=== PATIENT | female | born 1960 | race Caucasian/White ===

== ENCOUNTER 2017-01-20 01:21 | Emergency (ER) | payer BC ==
[~2017-01-20] VITALS: Ht 165.1 cm; Wt 68.2 kg
[2017-01-20 01:25] VITALS: BP 143/77; TEMP 97.4
[2017-01-20] MEDS ORDERED: MULTI VITAMINS1 TAB PO (01:29)
[2017-01-20 02:15] LABS: BASO # 0.1 (0.0-0.2); BASO % 1.1 % (0.0-2.0); EOS # 0.2 (0.0-0.7); EOS % 3.2 % (0-4.0); GRAN % 53.3 % (42.2-75.2); HEMATOCRIT 40.6 % (37.0-47.0); HEMOGLOBIN 13.5 g/dl (12.5-16.0); LYMPH # 2.5 (1.2-3.4); LYMPH % 33.8 % (20.0-51.0); MEAN CELL VOLUME 89 fl (80.0-100.0); MEAN CORPUSCULAR HEMOGLOBIN 30 pg (27.0-31.0); MEAN CORPUSCULAR HGB CONC 33 g/dl (33.0-37.0); MEAN PLATELET VOLUME 10.6 fl (7.4-10.4); MONO # 0.6 (0.1-0.6); MONO % 8.3 % (1.7-9.3); PLATELET COUNT 216 K/mm3 (130-400); RED BLOOD COUNT 4.56 M/mm3 (4.10-5.30); WHITE BLOOD COUNT 7.5 K/mm3 (4.8-10.8)
[2017-01-20 02:24] LABS: ADJUSTED CALCIUM 9.2 mg/dL (8.4-10.2); ALBUMIN 4.2 gm/dL (3.5-5.0); BILIRUBIN,TOTAL 0.5 mg/dL (0.0-1.0); CALCIUM 9.4 mg/dL (8.4-10.2); CREATININE, serum 0.82 mg/dL (0.52-1.25); POTASSIUM 3.7 mmol/L (3.4-5.0)
[2017-01-20 02:48] LABS: PH 6 (5-8); SQUAMOUS EPITHELIAL 0-2 /hpf; URINE APPEARANCE Clear; URINE BACTERIA Rare /hpf; URINE BILIRUBIN Negative (NEGATIVE); URINE BLOOD 3+ (NEGATIVE); URINE COLOR Yellow; URINE GLUCOSE Negative (NEGATIVE); URINE KETONE Negative (NEGATIVE); URINE RBC >50 /hpf; URINE UROBILINOGEN Negative (NEGATIVE)
[2017-01-20 03:18] VITALS: PULSE 70
== END 2017-01-20 03:19 | disposition home or self-care (01) ==
LOC: COL.ER 01:21
PROVIDERS: Emergency Medicine
DX: R10.31 Right lower quadrant pain (principal); Z87.442 Personal history of urinary calculi; R31.9 Hematuria, unspecified
CPT/HCPCS: J1885

== ENCOUNTER → 2017-11-23 | Outpatient (CLI) | payer BC ==
[~2017-11-23] MED LIST: MULTI VITAMINS1 TAB PO
== END ==
LOC: MC.RAD 14:48
DX: Z12.31 Encounter for screening mammogram for malignant neoplasm of breast (principal)

== ENCOUNTER → 2019-10-28 | Outpatient (CLI) | payer BC | LOC: MC.RAD 15:41 | DX: Z12.31 Encounter for screening mammogram for malignant neoplasm of breast (principal) ==

== ENCOUNTER → 2020-10-29 | Outpatient (CLI) | payer BC | LOC: MC.RAD 14:53 | DX: Z12.31 Encounter for screening mammogram for malignant neoplasm of breast (principal); G93.9 Disorder of brain, unspecified; G93.5 Compression of brain; G93.6 Cerebral edema ==

== ENCOUNTER 2020-11-17 09:30 | Outpatient (RCR) | payer BC | END 2020-11-29 | disposition home or self-care (01) | LOC: WSC | DX: H53.469 Homonymous bilateral field defects, unspecified side (principal); G93.89 Other specified disorders of brain; G93.6 Cerebral edema; M62.81 Muscle weakness (generalized) ==

== ENCOUNTER → 2020-12-23 | Outpatient (CLI) | payer OTHER | LOC: COL.RAD 14:13 | DX: R91.1 Solitary pulmonary nodule (principal) | CPT/HCPCS: Q9967 ==

== ENCOUNTER → 2021-04-01 | Outpatient (CLI) | payer OTHER ==
[~2021-04-01] MED LIST changes: +B COMPLEX #11 TA1 PO; +BENADRYL25 M2 PO; +DUO-KAPS1 CAP PO; +FLORAJEN A20 Billion PO; +GOOD SENSE SLEE25 M1 PO; +KEPPRA 500MG500 MG PO; -MULTI VITAMINS1 TAB PO; +POLYSPORIN OINT30 GM TP; +ROCEPHIN 2GM VIAL21 IJ; +ROXICODONE 55 MG/TAB PO; +TYLENOL 325MG325 MG PO; +VANCOCIN H125 MG/CAP PO; +ZANAFLEX CAPSULE2 MG PO
== END ==
LOC: COL.RAD 09:04
DX: D32.0 Benign neoplasm of cerebral meninges (principal); Z98.890 Other specified postprocedural states
CPT/HCPCS: A9585

== ENCOUNTER 2021-05-18 09:30 | Outpatient (RCR) | payer OTHER ==
--- NOTE | 2021-04-11 10:00 | NUR ---
Patient here for cares. PICC placed on 04/09/21. Chlorahexidine dressing intact. no signs or symptoms of IV complications noted. no concerns voiced. She will be on 6 weeks of IV antibiotics.
[2021-04-11 10:27] VITALS: BP 121/71; PULSE 68; TEMP 97.7
[2021-04-11 10:32] LABS: MEAN CELL VOLUME 87 fl (80.0-100.0); MEAN CORPUSCULAR HGB CONC 33 g/dl (33.0-37.0); MEAN PLATELET VOLUME 10.4 fl (7.4-10.4); PLATELET COUNT 241 K/mm3 (130-400); RED BLOOD COUNT 3.28 M/mm3 (4.10-5.30)
[2021-04-11 10:36] LABS: HEMATOCRIT 28.4 % (37.0-47.0); HEMOGLOBIN 9.4 g/dl (12.5-16.0); MEAN CORPUSCULAR HEMOGLOBIN 29 pg (27.0-31.0)
[2021-04-11 10:43] LABS: ALBUMIN 3.9 gm/dL (3.5-5.0); BILIRUBIN,TOTAL 0.2 mg/dL (0.0-1.0); C-REACTIVE PROTEIN 6.7 mg/dL (0.0-0.9); CALCIUM 9.2 mg/dL (8.4-10.2); CREATININE, serum 0.64 (0.52-1.25); POTASSIUM 4.1 mmol/L (3.4-5.0); TOTAL PROTEIN 6.7 gm/dL (6.4-8.2)
[2021-04-12 10:04] VITALS: BP 127/80; PULSE 91; TEMP 97.9
[2021-04-13 10:45] VITALS: BP 123/64; PULSE 78; TEMP 98.1
[2021-04-14 10:45] VITALS: BP 112/69; PULSE 77; TEMP 98.3
[2021-04-15 10:20] VITALS: BP 129/63; PULSE 72; TEMP 98.2
[2021-04-15 12:20] LABS: CLOSTRIDIUM DIFF A/B POS; CLOSTRIDIUM DIFF A/B INTERP Toxigenic C.diff POS
[2021-04-16 09:03] VITALS: BP 119/59; PULSE 76; TEMP 98.3
[2021-04-17 08:51] VITALS: BP 108/64; PULSE 86; TEMP 98.5
[2021-04-18 10:12] VITALS: BP 114/63; PULSE 70; TEMP 98.1
[2021-04-18 10:25] LABS: ALBUMIN 3.5 gm/dL (3.5-5.0); BILIRUBIN,TOTAL 0.2 mg/dL (0.0-1.0); CALCIUM 9.2 mg/dL (8.4-10.2); CREATININE, serum 0.6 (0.52-1.25); POTASSIUM 3.7 mmol/L (3.4-5.0); TOTAL PROTEIN 6.5 gm/dL (6.4-8.2)
[2021-04-18 10:27] LABS: MEAN CELL VOLUME 85 fl (80.0-100.0); MEAN CORPUSCULAR HGB CONC 33 g/dl (33.0-37.0); MEAN PLATELET VOLUME 9.9 fl (7.4-10.4); PLATELET COUNT 353 K/mm3 (130-400); RED BLOOD COUNT 3.23 M/mm3 (4.10-5.30); REDCELL DISTRIBUTION WIDTH-CV 13.7 % (11.5-14.5)
[2021-04-18 10:35] LABS: C-REACTIVE PROTEIN 22.1 mg/dL (0.0-0.9)
[2021-04-18 10:36] LABS: HEMATOCRIT 27.6 % (37.0-47.0); MEAN CORPUSCULAR HEMOGLOBIN 28 pg (27.0-31.0)
[2021-04-19 09:33] VITALS: BP 106/50; PULSE 71; TEMP 97.6
[2021-04-20 09:40] VITALS: BP 110/55; PULSE 76; TEMP 97.8
[2021-04-21 09:44] VITALS: BP 100/50; PULSE 71; TEMP 36.8
[2021-04-22 09:33] VITALS: BP 108/44; PULSE 73; TEMP 97.4
[2021-04-23 08:51] VITALS: BP 100/48; PULSE 68; TEMP 98.2
[2021-04-24 08:30] VITALS: BP 93/54; PULSE 70; TEMP 99
[2021-04-25 10:24] LABS: MEAN CELL VOLUME 87 fl (80.0-100.0); MEAN CORPUSCULAR HGB CONC 32 g/dl (33.0-37.0); MEAN PLATELET VOLUME 10.3 fl (7.4-10.4); PLATELET COUNT 385 K/mm3 (130-400); RED BLOOD COUNT 3.18 M/mm3 (4.10-5.30); REDCELL DISTRIBUTION WIDTH-CV 13.7 % (11.5-14.5)
[2021-04-25 10:28] VITALS: BP 114/72; PULSE 70; TEMP 98.1
[2021-04-25 10:28] LABS: HEMATOCRIT 27.5 % (37.0-47.0); HEMOGLOBIN 8.7 g/dl (12.5-16.0); MEAN CORPUSCULAR HEMOGLOBIN 27 pg (27.0-31.0)
[2021-04-25 10:37] LABS: ALANINE AMINOTRANSFERASE 33 U/L (4-34); ALBUMIN 3.4 gm/dL (3.5-5.0); ALKALINE PHOSPHATASE 106 U/L (50-136); ANION GAP 5 mmol/L (7-16); AST,SGOT 26 U/L (15-37); BILIRUBIN,TOTAL < 0.1 mg/dL (0.0-1.0); BLOOD UREA NITROGEN 12 mg/dL (7-17); C-REACTIVE PROTEIN 6.7 mg/dL (0.0-0.9); CARBON DIOXIDE 28 mmol/L (22-30); CHLORIDE 106 mmol/L (98-107); CREATININE, serum 0.62 (0.52-1.25); GLUCOSE 93 mg/dL (74-106); SODIUM 140 mmol/L (137-145); TOTAL PROTEIN 6.3 gm/dL (6.4-8.2)
[2021-04-25 10:56] LABS: BAND 7 % (0-10); LYMPHOCYTE 12 % (20.0-51.0); NEUTROPHILS 78 % (42.0-75.2); PLATELET ESTIMATE NORMAL (NORMAL)
[2021-04-25 10:57] LABS: HYPOCHROMIA 1+
[2021-04-26 09:29] VITALS: BP 116/44; PULSE 76; TEMP 98.4
[2021-04-27 09:51] VITALS: BP 125/70; PULSE 69; TEMP 98.3
[2021-04-28 09:52] VITALS: BP 106/57; PULSE 72; TEMP 98.6
[2021-04-29 10:01] VITALS: BP 125/72; PULSE 71; TEMP 97.1
[2021-04-30 09:00] VITALS: BP 125/68; PULSE 70; TEMP 98.4
[2021-05-01 09:08] VITALS: BP 114/57; PULSE 74; TEMP 98.5
[2021-05-02 09:45] VITALS: BP 115/65; PULSE 79; TEMP 98.4
[2021-05-02 10:06] LABS: MEAN CELL VOLUME 86 fl (80.0-100.0); MEAN CORPUSCULAR HGB CONC 31 g/dl (33.0-37.0); MEAN PLATELET VOLUME 10.2 fl (7.4-10.4); PLATELET COUNT 286 K/mm3 (130-400); RED BLOOD COUNT 3.39 M/mm3 (4.10-5.30); REDCELL DISTRIBUTION WIDTH-CV 14.1 % (11.5-14.5)
[2021-05-02 10:10] LABS: HEMATOCRIT 29.3 % (37.0-47.0); HEMOGLOBIN 9.2 g/dl (12.5-16.0); MEAN CORPUSCULAR HEMOGLOBIN 27 pg (27.0-31.0)
[2021-05-02 10:17] LABS: ALBUMIN 3.7 gm/dL (3.5-5.0); BILIRUBIN,TOTAL 0.2 mg/dL (0.0-1.0); CALCIUM 9.7 mg/dL (8.4-10.2); CREATININE, serum 0.69 (0.52-1.25); POTASSIUM 4.1 mmol/L (3.4-5.0); TOTAL PROTEIN 6.6 gm/dL (6.4-8.2)
[2021-05-03 09:36] VITALS: BP 112/69; PULSE 78; TEMP 97.2
[2021-05-04 09:37] VITALS: BP 114/68; PULSE 69; TEMP 98.4
[2021-05-05 08:47] VITALS: BP 111/85; PULSE 71; TEMP 98.7
[2021-05-06 10:59] VITALS: BP 131/110; PULSE 75; TEMP 97.8
[2021-05-07 09:32] VITALS: BP 108/96; PULSE 71; TEMP 97.7
[2021-05-08 08:51] VITALS: BP 118/65; PULSE 69; TEMP 97.8
[2021-05-09 09:47] VITALS: BP 111/56; PULSE 71; TEMP 98.1
[2021-05-09 09:55] LABS: MEAN CELL VOLUME 85 fl (80.0-100.0); MEAN CORPUSCULAR HGB CONC 31 g/dl (33.0-37.0); MEAN PLATELET VOLUME 10.6 fl (7.4-10.4); PLATELET COUNT 218 K/mm3 (130-400); RED BLOOD COUNT 3.49 M/mm3 (4.10-5.30); REDCELL DISTRIBUTION WIDTH-CV 14.3 % (11.5-14.5)
[2021-05-09 09:56] LABS: HEMATOCRIT 29.6 % (37.0-47.0); HEMOGLOBIN 9.2 g/dl (12.5-16.0); MEAN CORPUSCULAR HEMOGLOBIN 26 pg (27.0-31.0)
[2021-05-09 10:07] LABS: ALANINE AMINOTRANSFERASE 18 U/L (4-34); ALBUMIN 3.6 gm/dL (3.5-5.0); ALKALINE PHOSPHATASE 80 U/L (50-136); ANION GAP 4 mmol/L (7-16); AST,SGOT 20 U/L (15-37); BILIRUBIN,TOTAL 0.2 mg/dL (0.0-1.0); BLOOD UREA NITROGEN 11 mg/dL (7-17); CARBON DIOXIDE 26 mmol/L (22-30); CHLORIDE 110 mmol/L (98-107); CREATININE, serum 0.61 (0.52-1.25); GLUCOSE 88 mg/dL (74-106); POTASSIUM 4.3 mmol/L (3.4-5.0); SODIUM 140 mmol/L (137-145); TOTAL PROTEIN 6.3 gm/dL (6.4-8.2)
[2021-05-09 10:11] LABS: C-REACTIVE PROTEIN < 0.5 mg/dL (0.0-0.9)
[2021-05-10 09:31] VITALS: BP 102/72; PULSE 82; TEMP 98.1
[2021-05-11 09:34] VITALS: BP 109/70; PULSE 70; TEMP 98
[2021-05-12 09:35] VITALS: BP 112/72; PULSE 63; TEMP 98.8
[2021-05-13 09:59] VITALS: BP 116/85; PULSE 78; TEMP 97.8
[2021-05-14 09:13] VITALS: BP 113/70; PULSE 70; TEMP 98.6
[2021-05-15 09:12] VITALS: BP 104/62; PULSE 71; TEMP 97.8
[2021-05-16 09:49] VITALS: BP 112/57; PULSE 60; TEMP 98.4
[2021-05-16 10:01] LABS: HEMATOCRIT 30.7 % (37.0-47.0); HEMOGLOBIN 9.6 g/dl (12.5-16.0); MEAN CELL VOLUME 83 fl (80.0-100.0); MEAN CORPUSCULAR HEMOGLOBIN 26 pg (27.0-31.0); MEAN CORPUSCULAR HGB CONC 31 g/dl (33.0-37.0); MEAN PLATELET VOLUME 10.6 fl (7.4-10.4); PLATELET COUNT 229 K/mm3 (130-400); RED BLOOD COUNT 3.72 M/mm3 (4.10-5.30)
[2021-05-16 10:11] LABS: ALBUMIN 3.7 gm/dL (3.5-5.0); BILIRUBIN,TOTAL 0.2 mg/dL (0.0-1.0); C-REACTIVE PROTEIN 3.4 mg/dL (0.0-0.9); CALCIUM 9.4 mg/dL (8.4-10.2); CREATININE, serum 0.58 (0.52-1.25); POTASSIUM 3.9 mmol/L (3.4-5.0); TOTAL PROTEIN 6.6 gm/dL (6.4-8.2)
[2021-05-17 09:43] VITALS: BP 124/62; PULSE 64; TEMP 97.8
[~2021-05-18] VITALS: Ht 165.1 cm; Wt 68.4 kg
[2021-05-18 10:00] VITALS: BP 120/62; PULSE 60; TEMP 97.1
== END 2021-05-18 12:00 | disposition home or self-care (01) ==
LOC: EUO 09:30
PROVIDERS: Internal Medicine; Internal Medicine Infectious Disease
DX: S01.00XA Unspecified open wound of scalp, initial encounter (principal); A49.01 Methicillin susceptible Staphylococcus aureus infection, unspecified site; Z79.899 Other long term (current) drug therapy; Z95.9 Presence of cardiac and vascular implant and graft, unspecified
CPT/HCPCS: J0696

== ENCOUNTER → 2021-10-31 | Outpatient (CLI) | payer OTHER | LOC: MC.RAD 14:41 | DX: Z12.31 Encounter for screening mammogram for malignant neoplasm of breast (principal) ==

== ENCOUNTER → 2023-11-22 | Outpatient (CLI) | payer OTHER ==
[~2023-11-22] MED LIST changes: +MASON NATURAL2000 IU PO; +NORCO 325 MG-51 TAB PO
== END ==
LOC: MC.RAD 06:52
DX: Z12.31 Encounter for screening mammogram for malignant neoplasm of breast (principal)